=== PATIENT | female | born 2005 | race Caucasian/White ===

== ENCOUNTER 2023-12-10 11:34 | Emergency (ER) | payer OTHER, SELFPAY ==
--- NOTE | ~2023-12-10 | XR_ITS ---
EXAMINATION: XR TOES, RIGHT CLINICAL INFORMATION: Right great toe, cellulitis, rule out osteomyelitis. COMPARISON: None available. TECHNIQUE: 3 views of the right hallux were obtained. FINDINGS: There is soft tissue swelling overlying the right distal hallux. There is no underlying bony erosion or fracture, nor permeative bony change. No suspicious soft tissue gas. No definite erosion. No radiopaque foreign body. Remainder the bones and soft tissues of the right foot appear normal. XR/XR toe RT min 2V IMPRESSION: Soft tissue swelling distal hallux, without underlying radiographic evidence of bony osteomyelitis or abnormal soft tissue gas. Electronically signed by: Tutu Betts MD 12/10/2023 03:50 PM EDT
[2023-12-10 11:51] VITALS: BP 131/51; PULSE 93; RESP 16; TEMP 37; O2SAT 99; BMI 22.1
--- NOTE | 2023-12-10 11:52 | ED_ITS ---
HPI - Extremity Injury (Lower) General Chief Complaint: Extremity Problem Stated Complaint: toe infection Time Seen by Provider: 12/10/23 12:44 Source: patient Mode of arrival: ambulatory Limitations: no limitations History of Present Illness ED Provider: Israel Rueda PA-C HPI Narrative: 18-year-old female presents to ED for right big toe redness and toe discomfort- chronic for couple of months but worsened the past few weeks. Patient denies any fever, chills, nausea, vomiting, any recent trauma to the area. Related Data Previous Rx's ?Medication ?Instructions ?Recorded cephalexin 500 mg capsule 500 mg PO QID 7 days #28 caps 12/10/23 doxycycline hyclate 100 mg capsule 100 mg PO BID 7 days #14 caps 12/10/23 naproxen 500 mg tablet 500 mg PO BID PRN pain 7 days #14 12/10/23 tabs Allergies Allergy/AdvReac Type Severity Reaction Status Date / Time amoxicillin Allergy Hives Verified 12/10/23 11:53 Review of Systems 2 Review of Systems: infected ingrown toe nail Yes all other systems are reviewed and are negative [facility] Social History Social History Unable to assess alcohol history related to: Unknown Use of substances other than those prescribed or required for medical reasons: Unknown Advance Directives: No Advance Directives Information Provided: Yes Do you have a plan to hurt others: No Plan Physical Exam 2 Vital Signs: Vital Signs: Last Vital Signs Temp 97.9 F 12/10/23 15:49 Pulse 85 12/10/23 15:49 Resp 16 12/10/23 15:49 BP 103/58 L 12/10/23 15:49 Pulse Ox 95 12/10/23 15:49 O2 Del Method Room Air 12/10/23 14:10 BMI result Body Mass Index 22.1 Const: General: cooperative, healthy appearing, comfortable, no acute distress, well developed, alert and awake Orientation/consciousness: patient oriented x3 HEENT: Head: Yes normal to inspection, Yes No palpable skull fracture present, Yes normocephalic, Yes atraumatic and No abrasion Eyes: General: appearance normal, both eyes and all related structures Neck: Neck: Yes normal visual inspection, Yes full ROM, Yes no lymphadenopathy, Yes no meningeal signs, Yes trachea midline, Yes supple, No anterior neck swelling and No tender Chest: Chest palpation & inspection: normal inspection of the chest and normal palpation of entire chest wall Resp: Effort & Inspection: normal respiratory effort and able to speak in complete sentences Auscultation: clear to auscultation bilaterally Cardio: Jugular venous distension: no JVD Heart sounds: S1 normal heart sound present and S2 normal heart sound present GI: Inspection: Yes normal to inspection Palpation (GI): Soft to palpation, not firm, nontender, no guarding and not rigid : General: No CVA tenderness and Yes no CVA tenderness Back/Spine/Pelvis: Back: no CVA tenderness, No CVA tenderness and No back tenderness Skin: General skin exam: no rashes or lesions noted, elasticity normal and turgor normal Neuro: General: patient oriented x3, gait normal, tone normal, moves all extremities, Normal light touch and pain sensation, no meningeal signs, no focal motor deficits, CN's II-XI intact bilaterally and normal sensation to monofilament Extrem: General: Yes normal to inspection, Yes full ROM, Yes capillary refill normal and Yes normal exam except as noted Ankle/foot/toe images: 1. Positive for redness and swelling. Negative for bluish black discoloration. 2. Positive for redness and swelling. N egative for bluish black discoloration. 3. Positive for ingrown toenail with s ome green discoloration 4. Positive for ingrown toenail with myriam e green discoloration. rest of extremity normal. Motor/ neuro/ vascular exam intact Psych: Appearance: grossly normal, well kempt and not disheveled Course Course Course Narrative: This is a Rapid Medical Examination (RME) performed by Serge Cardenas PA-C in triage. Full HPI, ROS, assessment and treatment plan per primary provider in the Main ED. here for eval of infected ingrown toe nail of right great toe x1 year, worsening over the last 2 months. has been seen at [facility] for this twice over the last year. has been unable to f/u with podiatry as she has not had insurance. no fevers. no hx DM. Plan: xr great toe, basic labs Medications Administered Discontinued Medications Generic Name Dose Route Start Last Admin Trade Name Freq PRN Reason Stop Dose Admin Diphtheria/Tetanus/Acell Pertussis 0.5 ml 12/10/23 15:01 12/10/23 15:41 Diphth,Pertus(Acell),Tet Adult 0.5 Ml Syringe IM 12/10/23 15:02 0.5 ml .ONCE ONE Administration Lidocaine HCl 5 ml 12/10/23 13:40 12/10/23 14:19 Lidocaine Hcl 1 % Mpf 5 Ml Vial INFILTRATI 12/10/23 13:41 5 ml ONCE ONE Administration Lidocaine HCl 5 ml 12/10/23 13:40 12/10/23 14:32 Lidocaine Hcl 1 % Mpf 5 Ml Vial INFILTRATI 12/10/23 13:41 5 ml ONCE ONE Administration Medical Decision Making Medical Decision Making MDM Narrative: 18-year-old female with history of infected ingrown toenail presents to ED for episode of left ingrown toenail. Patient has lateral and medial ingrown toenail of left great toe with surrounding erythema. Bilateral ingrown toenails has some green discoloration. Labs normal. X-ray negative for osteomyelitis. Toe cleaned with sterile saline. 7 mL of lidocaine 1% used for digital block. Surgical forceps and scissors were used for excision of bilateral ingrown toenails. During procedure there was foul smelling odor but negative for any profuse discharge. Wound dressed. Patient given Tdap. Patient discharged antibiotics and will be given Podiatry follow-up. Patient explained worrisome signs and informed to return to the ED immediately Differential Diagnosis Differential Diagnoses: The differential diagnosis associated with the presentation includes (Colitis, osteomyelitis, ingrown toenail) Admission/Observation Consideration of admission/observation: Escalation of care including admission/observation considered Lab Data [facility] Lab Attestation statement: I reviewed the patient's lab results. 12/10/23 12:01 12/10/23 12:01 Labs: Lab Results 12/10/23 Range/Units 12: WBC 6.9 (4.8-10.8) X10*3/uL RBC 4.47 (4.20-5.50) X10*6/uL Hgb 12.4 (12.0-16.0) g/dl Hct 37.9 (37.0-47.0) % MCV 84.8 (80.0-98.0) fL MCH 27.7 (27.0-33.0) pg MCHC 32.7 (31.0-35.0) g/dl RDW 13.2 (11.0-16.0) % Plt Count 265 (160-400) X10*3/uL MPV 10.2 (9.4-12.3) fL Immature Gran % (Auto) 0.3 (0.0-0.4) % Neut % (Auto) 60.0 (45-73) % Lymph % (Auto) 27.9 (20-40) % [place] % (Auto) 8.0 (2-11) % Eos % (Auto) 2.8 (0-4) % Baso % (Auto) 1.0 (0-2) % Lymph # (Auto) 1.9 (1.2-4.9) X10*3/uL [place] # (Auto) 0.6 (0.1-1.2) X10*3/uL Eos # (Auto) 0.2 (0.0-0.4) X10*3/uL Baso # (Auto) 0.1 (0.0-0.2) X10*3/uL Abs Immat Gran (auto) 0.02 (0.00-0.03) X10*3/uL Absolute Neuts (auto) 4.1 (2.0-8.3) x10*3/uL Absolute Nucleated RBC 0.000 (0.0-0.012) X10*3/uL Nucleated RBC % (auto) 0.0 (0.0-0.2) /100WBC ESR 7 (0-20) MM/HR Sodium 139 (135-145) mmol/L Potassium 4.1 (3.3-5.1) mmol/L Chloride 109 H (96-108) mmol/L Carbon Dioxide 25 (22-29) mmol/L Anion Gap 9 L (12-20) BUN 12 (9-16) mg/dL Creatinine 0.76 (0.5-1.4) mg/dL Estim Creat Clear Calc 97.7 Estimated GFR > 60 Random Glucose 107 (60-115) mg/dL Calcium 9.3 (8.4-10.2) mg/dL Total Bilirubin 0.3 (0.0-1.0) mg/dL AST 27 (5-31) U/L ALT 33 H (0-31) U/L Alkaline Phosphatase 69 (39-117) U/L C-Reactive Protein 0.21 (< or = 0.50) mg/dL Total Protein 6.7 (6.5-8.0) g/dL Albumin 3.8 (3.5-5.0) g/dL Independent Interpretation I performed an independent interpretation of an: Plain X-Ray Radiology Impression Discussion of test interpretation with radiology: I have reviewed the radiologist's reading. Independent Historian Clinical information obtained from an independent historian. History obtained from or confirmed by: Other (Patient) External Record Review External record reviewed: Other (prior visits) Prescription Management I considered prescription management with: Pain Medication and Antibiotic Discharge Plan Discharge Clinical Impression: Ingrowing nail, left great toe, Cellulitis Patient Disposition: Home, Self-Care Instructions: Cellulitis (ED), Ingrown Nail (ED), Partial Nail Avulsion for Ingrown Nail (DC) Additional Instructions: You will be discharged with antibiotics. Recommend follow-up with sports complex attendant. Return to the ED immediately for worsening redness, pus discharge, foul odor, red streaks, bluish black discoloration, fever, chills, any other concerning symptoms. Prescriptions: New cephalexin 500 mg capsule 500 mg PO QID 7 Days Qty: 28 0RF doxycycline hyclate 100 mg capsule 100 mg PO BID 7 Days Qty: 14 0RF naproxen 500 mg tablet 500 mg PO BID PRN (Reason: pain) 7 Days Qty: 14 0RF Referrals: Daryl Das MD [Physician] - (Recurrent ingrown toenails) Stand Alone Forms: Work/School Release Interventions: ED Discharge Assessment Last Done: 12/10/23 15:49 Discharge Date/Time: 12/10/23 15:50 Print Language: Spanish
[2023-12-10 12:04] LABS: MANUAL DIFF FLAG NO
[2023-12-10 12:07] LABS: Basophils Absolute Auto 0.1 X10*3/uL (0.0-0.2); Eosinophils Absolute Auto 0.2 X10*3/uL (0.0-0.4); Eosinophils Percent Auto 2.8 % (0-4); Hematocrit 37.9 % (37.0-47.0); Hemoglobin 12.4 g/dl (12.0-16.0); Imm Gran Abs Auto 0.02 X10*3/uL (0.00-0.03); Imm Gran Pct Auto 0.3 % (0.0-0.4); Lymphocytes Absolute Auto 1.9 X10*3/uL (1.2-4.9); Lymphocytes Percent Auto 27.9 % (20-40); Mean Corpuscular HGB Conc 32.7 g/dl (31.0-35.0); Mean Corpuscular Hemoglobin 27.7 pg (27.0-33.0); Mean Corpuscular Volume 84.8 fL (80.0-98.0); Mean Platelet Volume 10.2 fL (9.4-12.3); Monocytes Absolute Auto 0.6 X10*3/uL (0.1-1.2); Neutrophils Absolute Auto 4.1 x10*3/uL (2.0-8.3); Platelet Count 265 X10*3/uL (160-400); Red Blood Count 4.47 X10*6/uL (4.20-5.50); Red Cell Distribution Width 13.2 % (11.0-16.0); White Blood Count 6.9 X10*3/uL (4.8-10.8)
[2023-12-10 12:47] LABS: Alanine Aminotransferase 33 U/L (0-31); Albumin Level 3.8 g/dL (3.5-5.0); Alkaline Phosphatase 69 U/L (39-117); Anion Gap 9 (12-20); Aspartate Amino Transferase 27 U/L (5-31); Bilirubin Total 0.3 mg/dL (0.0-1.0); Blood Urea Nitrogen 12 mg/dL (9-16); Calcium 9.3 mg/dL (8.4-10.2); Carbon Dioxide 25 mmol/L (22-29); Chloride 109 mmol/L (96-108); Creatinine Clr Calc Pharmacy 97.7; Estimated Glomerular Filt Rate > 60; Glucose Random 107 mg/dL (60-115); Potassium 4.1 mmol/L (3.3-5.1); Sodium 139 mmol/L (135-145); Total Protein 6.7 g/dL (6.5-8.0)
[2023-12-10 13:13] LABS: C Reactive Protein 0.21 mg/dL (< or = 0.50)
[2023-12-10 13:44] LABS: Erythrocyte Sedimentation Rate 7 MM/HR (0-20)
[2023-12-10 14:10] VITALS: BP 114/72; PULSE 82; RESP 20; TEMP 37; O2SAT 100
[2023-12-10 14:15] VITALS: BP 114/72
[2023-12-10] MEDS: Lidocaine HCl 1 % MPF 5 ML VIAL INFILTRATI ×2 (14:19→14:32)
[2023-12-10 15:40] VITALS: BP 103/58; PULSE 85; RESP 16; TEMP 36.6; O2SAT 95
[2023-12-10] MEDS: Diphth,Pertus(ACell),Tet Adult 0.5 ML SYRINGE IM (15:41)
[2023-12-10 15:49] VITALS: BP 103/58; PULSE 85; RESP 16; TEMP 36.6; O2SAT 95
== END 2023-12-10 15:50 | disposition home or self-care (01) ==
PROVIDERS: Physician Assistant; Physician Assistant Medical; Emergency Provider Emergency Medicine Emergency Medical Services
DX: L60.0 Ingrowing nail (principal); L03.031 Cellulitis of right toe; M79.671 Pain in right foot; Z23 Encounter for immunization; Z79.899 Other long term (current) drug therapy
CPT/HCPCS: 11750; 36415; 73660; 80053; 85025; 85652; 86140; 90471; 90715; 99284; J2003

== ENCOUNTER → 2023-12-10 11:53 | Outpatient (BNV) | payer SELFPAY | PROVIDERS: Emergency Provider Emergency Medicine Emergency Medical Services; Visit Provider Radiology Diagnostic Radiology | DX: L03.031 Cellulitis of right toe (principal) | CPT/HCPCS: 73660 ==